=== PATIENT | male | born 1955 | race Caucasian/White ===

== ENCOUNTER → 2019-11-30 10:23 | Outpatient (CLI) | payer MEDICARE, OTHER, SELFPAY | DX: Z20.828 Contact with and (suspected) exposure to other viral communicable diseases (principal) | CPT/HCPCS: 87635; C9803; U0003 ==

== ENCOUNTER 2021-04-11 12:28 | Outpatient (CLI) | payer MEDICARE, OTHER, SELFPAY ==
--- NOTE | 2021-04-11 12:41 | EKG12_ITS ---
Test Reason : PREOP Blood Pressure : / mmHG Vent. Rate : 066 BPM Atrial Rate : 066 BPM P-R Int : 162 ms QRS Dur : 086 ms QT Int : 402 ms P-R-T Axes : 076 048 066 degrees QTc Int : 421 ms Sinus rhythm with marked sinus arrhythmia Otherwise normal ECG Confirmed by BALJINDER CRUZ, PHILLIP ([id number]), material expeditor KHOA GOODMAN ([id number]) on 04/12/2021 8:24:57 AM Referred By: Aubrey Osborn Confirmed By:PHILLIP GALE MD
--- NOTE | 2021-04-11 13:18 | RAD_ITS ---
STUDY: X-RAY CHEST REASON FOR EXAM: Male, 65 years old. Preoperative evaluation. TECHNIQUE: Frontal and lateral views of the chest. COMPARISON: None. FINDINGS: Hyperinflation with scattered healed parenchymal granulomatous calcifications. There is no demonstrated pleural abnormality. Normal size heart. Normal mediastinum and jael. Normal visualized pulmonary arteries. Aortic tortuosity. Normal visualized thoracic spine. Normal visualized ribs, clavicles, and shoulders. There is no demonstrated abnormality of the visualized soft tissue structures of the upper abdomen. RAD/Chest PA and Lateral IMPRESSION: Hyperexpansion. No active or acute cardiopulmonary disease. Electronically Signed: Teja Dejesus MD at 9:45 EST ,
[2021-04-11 14:53] LABS: Absolute Lymphocyte Count 1.88 X10^3/uL (0.83-4.51); Absolute Neutrophil Count 3.1 X10^3/uL (2.0-7.7); Basophil# 0.05 X10^3/uL; Basophil% 0.9 % (0-1); Eosinophil# 0.23 X10^3/uL; Hematocrit 43.9 % (40-54); Lymphocyte # 1.88 X10^3/ul (0.83-4.51); Lymphocyte % 32.3 % (19-41); Mean Corp Hgb Conc 34.2 g/dL (32-36); Mean Corpuscular Hgb 30.9 pg (27.0-32.0); Mean Corpuscular Volume 90.5 fL (80-94); Mean Platelet Vol. 10.3 fl (6.2-12.0); Monocyte# 0.52 X10^3/uL; Monocyte% 8.9 % (0-10); NRBC Flagged by Analyzer 0 % (0-5); Neutrophil # 3.12 X10^3/uL (2.7-7.7); Neutrophil % 53.6 % (47-70); Platelet Count 213 K/mm3 (150-450); RBC Distribution Width CV 12.7 % (11.6-14.6); RBC Distribution Width SD 42.2 fl (35.1-43.9); Red Blood Count 4.85 M/mm3 (4.6-6.2); White Blood Count 5.8 K/mm3 (4.4-11.0)
[2021-04-11 14:57] LABS: Prothrombin Time (Protime)PT. 12.4 SECONDS (11.7-14.9)
[2021-04-11 14:58] LABS: Partial Thromboplast Time 29.1 Seconds (24.1-36.2)
[2021-04-11 15:44] LABS: Anion Gap 4 (5-15); BUN 15 mg/dL (7-18); BUN/Creat Ratio 16.4 RATIO (10-20); Calcium,Total 9.2 mg/dL (8.5-10.1); Chloride 106 mmol/L (98-107); Creatinine, Serum 0.91 mg/dL (0.70-1.30); EST Glomerular Filtration Rate 88 mL/min (>60); Est Glom Filt Rate - Afr Amer 107 mL/min (>60); Glucose 92 mg/dL (74-106); Potassium 4.2 mmol/L (3.5-5.1); Sodium Level 141 mmol/L (136-145)
== END 2021-04-11 23:59 | disposition home or self-care (01) ==
PROVIDERS: Referring Provider Orthopaedic Surgery; Visit Provider Orthopaedic Surgery
DX: Z01.810 Encounter for preprocedural cardiovascular examination (principal); Z01.811 Encounter for preprocedural respiratory examination
CPT/HCPCS: 36415; 71046; 80048; 85025; 85610; 85730; 93005

== ENCOUNTER 2024-08-06 08:25 | Day surgery (SDC) | payer MEDICARE, OTHER, SELFPAY ==
[2024-08-06] VITALS (7 sets, daily range): BP systolic 118–160; BP diastolic 68–89; PULSE 61–71; RESP 16; TEMP 36.6–37.4; O2SAT 97–99; BMI 25.6
[2024-08-06] MEDS: Lactated Ringers 1,000 ML 15 ML IV (08:49)
== END 2024-08-06 10:16 | disposition home or self-care (01) ==
LOC: EN 08:26 → AC 08:28
PROVIDERS: Visit Provider Internal Medicine Gastroenterology
PROC: 0DJD8ZZ Inspection of Lower Intestinal Tract, Via Natural or Artificial Opening Endoscopic (ICD-10-PCS; CPT 45378; principal; 2024-08-06 09:25)
DX: Z12.11 Encounter for screening for malignant neoplasm of colon (principal); K57.30 Diverticulosis of large intestine without perforation or abscess without bleeding; K58.0 Irritable bowel syndrome with diarrhea; K63.89 Other specified diseases of intestine; K21.9 Gastro-esophageal reflux disease without esophagitis; Z79.899 Other long term (current) drug therapy; Z87.891 Personal history of nicotine dependence
CPT/HCPCS: 44361; 45380; 88305; J2405